=== PATIENT | female | born 1975 | race Caucasian/White ===

== ENCOUNTER 2017-11-17 20:43 | Emergency (ER) | payer BC ==
[2017-11-17 20:58] VITALS: BP 118/98; PULSE 87; O2SAT 99
[2017-11-17] MEDS ORDERED: TYLENOL 325 MG PO STA (21:07)
--- NOTE | 2017-11-17 21:07 | ERPHSYRPT ---
- History of Present Illness Time Seen by Provider: 11/17/17 21:00 Source: patient Exam Limitations: clinical condition Patient Subjective Stated Complaint: stubbed toes on night stand and all feel like they are bruised on the left foot Triage Nursing Assessment: Pt A&O x3, vitals wnl, stubbed left toes on night stand, dorsalis pedis pulses normal, can move up and down, doesn't appear to be in any distress Physician History: PATIENT STUBBED HER LEFT GREAT TOE AND LEFT 2ND AND 3RD TOES ON NIGHT STAND. HAS PAIN UPON WEIGHT BEARING, DENIES BRUISING OR DEFORMITY. Occurred: just prior to arrival Quality: constant Severity of Pain-Max: moderate Severity of Pain-Current: moderate Lower Extremities Pain: 1st toe: left, 2nd toe: left, 3rd toe: left Modifying Factors: Improves With: movement, other (WEIGHT BEARING) Allergies/Adverse Reactions: No Known Drug Allergies Allergy (Verified 11/17/17 20:59) Home Medications: Cetirizine HCl [Zyrtec] 10 mg PO DAILY 11/17/17 [History] Lisinopril/Hctz 20/12.5 mg [Lisinopril/ Hctz 20/12.5] 1 tab PO DAILY 11/17/17 [ History] Immunizations Up to Date: Yes - Review of Systems Constitutional: No Fever, No Chills Musculoskeletal: Injury, Joint Pain Neurological: No Dizziness, No Focal Weakness, No Sensory Changes Psychological: No Symptoms - Past Medical History Pertinent Past Medical History: Yes Cardiac History: Hypertension GI Medical History: Gallbladder Disease - Past Surgical History Past Surgical History: Yes Gastrointestinal: Cholecystectomy Female Surgical History: Tubal Ligation - Social History Smoking Status: Never smoker Exposure to second hand smoke: No Drug Use: none Patient Lives Alone: No - Female History Hx Now: No (tubal) - Nursing Vital Signs Nursing Vital Signs: Initial Vital Signs Temperature 97.7 F 11/17/17 20:48 Pulse Rate 87 11/17/17 20:48 Blood Pressure 118/98 11/17/17 20:48 O2 Sat by Pulse Oximetry 99 11/17/17 20:48 Pain Scale Pain Intensity 2 - Physical Exam General Appearance: alert Foot Exam: left foot: limited range of motion (TENDERNESS LEFT GREAT TOE, OVER PROXIMAL AND DISTAL PHALANGX, NO SWELLING OR ECCHYMOSIS, LIMITED RANGE OF MOTION METATARSAL PHALNAGEAL JOINT AND DIP JOINT, NO ECCHYMOSIS OR SWELLING. MINIMAL TENDERNESS LEFT 2ND/3RD TOES, NO SWELLING OR ECCHYMOSIS,), soft tissue tenderness Neuro/Tendon Exam: normal sensation, normal motor functions SpO2 Interpretation: normal SpO2: 99 - Radiology Exams Left Foot X-ray Interpretation: Interpreted by me, Negative, No Fracture Ordered Tests: Active Orders 24 hr Category Date Time Status Crutches STAT Care 11/17/17 21:38 Ordered FOOT (MINIMUM 3 VIEWS) Stat Exams 11/17/17 21:07 Taken Medication Summary Discontinued Medications Generic Name Dose Route Start Last Admin Trade Name Freq PRN Reason Stop Dose Admin Acetaminophen 650 mg 11/17/17 21:07 11/17/17 21:26 Tylenol 325 Mg PO 11/17/17 21:08 650 mg STAT STA Administration Acetaminophen Confirm 11/17/17 21:25 Tylenol 325 Mg Administered 11/17/17 21:26 Dose 650 mg .ROUTE .STK-MED ONE - Progress Progress: pain not gone completely Progress Note: 11/17/17 21:41 ADMINISTERED TYLENOL 650MG ORALLY, FITTED FOR CRUTCHES Counseled pt/family regarding: diagnosis, need for follow-up, rad results - Departure Time of Disposition: 21:47 Departure Disposition: Home Clinical Impression: CONTUSION/STRAIN LEFT FOOT Condition: Stable Critical Care Time: No Referrals: BEBA BRYAN MD [Primary Care Provider] - Additional Instructions: TYLENOL OR MOTRIN NEEDED FOR PAIN. APPLY ICE OVER TOE SWELLING EVERY 4 HOURS , 30 MINUTES FOR 48 HOURS. AMBULATE USING CRUTCHES NONWEIGHT BEARING LEFT FOOT FOR 4-5 DAYS. CONSULT YOUR PRIMARY CARE PROVIDER FOR FOLLOWUP IN 1 WEEK.
[2017-11-17] MEDS ORDERED: TYLENOL 325 MG ONE (21:25)
--- NOTE | 2017-11-18 08:58 | XRAY ---
Indication: Pain following injury. Comparison: None 3 nonweightbearing views of the left foot demonstrates tiny posterior heel spur. No other bony, articular, or soft tissue abnormalities.
== END 2017-11-17 22:05 | disposition home or self-care (01) ==
LOC: ED 20:43
DX: S90.112A Contusion of left great toe without damage to nail, initial encounter (principal); S90.122A Contusion of left lesser toe(s) without damage to nail, initial encounter; S96.912A Strain of unspecified muscle and tendon at ankle and foot level, left foot, initial encounter; W22.03XA Walked into furniture, initial encounter
CPT/HCPCS: 73630; 99283; 99284; A9270-GY